=== PATIENT | male | born 1945 ===

== ENCOUNTER → 2020-06-15 09:11 | Outpatient (REF) | payer OTHER, SELFPAY | LOC: ANHLAB 09:11 | PROVIDERS: PCP Family Medicine; Visit Provider Nurse Practitioner | DX: C44.311 Basal cell carcinoma of skin of nose (principal) | CPT/HCPCS: 88305; 88331 ==

== ENCOUNTER → 2020-08-26 16:30 | Outpatient (REF) | payer OTHER, SELFPAY | LOC: ANHLAB 16:30 | PROVIDERS: PCP Family Medicine; Visit Provider Surgery Plastic and Reconstructive Surgery | DX: C44.311 Basal cell carcinoma of skin of nose (principal); L57.8 Other skin changes due to chronic exposure to nonionizing radiation | CPT/HCPCS: 88305 ==